=== PATIENT | male | born 1945 ===

== ENCOUNTER → 2020-08-22 10:52 | Outpatient (BNVA) | payer MEDICARE, BC, SELFPAY | PROVIDERS: PCP Internal Medicine; Visit Provider Urology | DX: Z13.89 Encounter for screening for other disorder (principal) | CPT/HCPCS: Q3014 ==

== ENCOUNTER → 2020-11-21 10:23 | Outpatient (BNVA) | payer MEDICARE, BC, SELFPAY | PROVIDERS: PCP Internal Medicine; Visit Provider Urology | DX: R39.12 Poor urinary stream (principal); R97.20 Elevated prostate specific antigen [PSA] | CPT/HCPCS: 51798; 81002; 99212 ==

== ENCOUNTER → 2021-07-25 08:20 | Outpatient (BNVA) | payer MEDICARE, BC, SELFPAY | PROVIDERS: PCP Internal Medicine; Visit Provider Urology | DX: R97.20 Elevated prostate specific antigen [PSA] (principal); N40.0 Benign prostatic hyperplasia without lower urinary tract symptoms | CPT/HCPCS: Q3014 ==

== ENCOUNTER → 2022-02-25 08:26 | Outpatient (BNVA) | payer MEDICARE, BC, SELFPAY | PROVIDERS: PCP Internal Medicine; Visit Provider Urology | DX: R97.20 Elevated prostate specific antigen [PSA] (principal); N40.0 Benign prostatic hyperplasia without lower urinary tract symptoms | CPT/HCPCS: Q3014 ==

== ENCOUNTER → 2022-09-02 09:04 | Outpatient (BNVA) | payer MEDICARE, BC, SELFPAY | PROVIDERS: PCP Internal Medicine; Visit Provider Urology | DX: N40.0 Benign prostatic hyperplasia without lower urinary tract symptoms (principal); R97.20 Elevated prostate specific antigen [PSA] | CPT/HCPCS: Q3014 ==

== ENCOUNTER 2023-03-03 13:30 | Outpatient (AMB) | payer MEDICARE, BC, SELFPAY ==
--- NOTE | 2023-03-03 13:34 | MHC.OFFVIS ---
Intake Intake Visit Reasons: 6M PSA(SET) Intake Note: Patient is present for Follow Up PSA Urology Med: Finasteride Antibiotic Allergy: None Blood Thinner: none [facility]acy: [facility] Allergies No Known Allergies Allergy (Verified 03/03/23 13:36) Medication List - Last Reconciled 03/03/23 by Jesús Galvan MD azelastine intranasal finasteride 5 mg PO DAILY 90 days losartan mg PO metoprolol succinate ER mg PO HPI HPI Comments History of Present Illness Details Xavi is a pleasant male. He is a patient of Dr. Perla. He is seen for the following urologic issue - elevated PSA PSA continued to fall down to 2.6 On finasteride Thursday, Thursday, Thursday Refill provided Six month follow-up Lab work through [facility] Sleep through the imaging Elevated PSA He presents for - further evaluation of elevated PSA Current management is - finasteride - Thursday, Thursday, Thursday Laboratory investigations include - a total PSA evaluation 07/01 7.0 F 15%, 10/31 2.9, 07/02 3.7, 03/03 4.2, 07/03 3.1, 01/02 2.6 Imaging investigations include -none Individualized Prostate Cancer Risk Calculator - 5-10% high risk - Discussed use of 5AR to help differentiate prostate cancer from benign disease. He would like to try this and understands the small risk associated with a delay in diagnosis, A TRUS biopsy - has not been performed Symptoms include - August 2019 had minimal. Sleeps through the night. Good urinary stream Overall symptoms are mild Therapeutic plan will be - 6 months of finasteride with repeat PSA [facility] Medical History Atrial fibrillation Erectile dysfunction HTN (hypertension) Sleep apnea Review of Systems Const Denies chills and Denies fever(s) Card Reports no additional complaints and Denies syncope Resp Denies cough GI Denies abdominal pain and Denies heartburn Reports as per HPI and Denies change in libido Neuro Denies syncope Psych Denies change in libido Endo Denies change in libido Physical Exam Const General: cooperative, healthy appearing, comfortable and no acute distress Orientation/consciousness: patient oriented x3 HEENT Face and sinus: Yes normal facial exam Mouth: moist mucous membranes Neck Neck: Yes normal visual inspection, Yes full ROM and Yes trachea midline Chest Chest palpation & inspection: normal inspection of the chest Resp Effort & Inspection: normal respiratory effort, able to speak in complete sentences and no respiratory distress GI Inspection: Yes normal to inspection Back/Spine/Pelvis Cervical Spine: normal cervical lordosis Thoracic/Lumbar Spine: thoracic and lumbar spine normal to inspection Skin General skin exam: no rashes or lesions noted Neuro General: patient oriented x3, gait normal, tone normal and moves all extremities Extrem General: Yes normal to inspection and Yes capillary refill normal Assessment & Plan Assessment & Plan (1) BPH without obstruction/lower urinary tract symptoms: Code(s): N40.0 - Benign prostatic hyperplasia without lower urinary tract symptoms (2) Elevated PSA: Code(s): R97.20 - Elevated prostate specific antigen [PSA] Plan 6 month follow-up PSA Orders: Orders Prostate Specific Antigen 6 Months R97.20 - Elevated prostate specific antigen [PSA] AMB Urinalysis Automated Today Z13.9 - Encounter for screening, unspecified Patient Instructions: Imaging studies, laboratory and physical exam results were discussed and reviewed in detail. No major barriers to patient understanding were identified. An opportunity to ask questions regarding the treatment plan was provided. All questions were answered. The patient expressed understanding and agreement with the above treatment plan. The patient is aware they should contact our office by phone for worsening of their current condition or the appearance of new urologic symptoms. Compliance is encouraged with any medications and followup testing that is ordered. It is a privilege to participate in the urologic care of your patient. If you have any questions or concerns regarding treatment for the above conditions, or other urologic issues, please do not hesitate to contact me. The office telephone contact is [phone]. This note is constructed using voice recognition software. While every effort has been made to ensure accuracy brake lining finisher asbestos errors may have been included. Yours sincerely, Dr Jesús Galvan MD, JASMIN [facility] - Urology Providers of Expert, Compassionate Care for the Genitourinary System Coding Level of Care Code Est Pt Level 3 (48688) Diagnoses BPH without obstruction/lower urinary tract symptoms N40.0 Elevated PSA R97.20
== END 2023-03-03 14:14 | disposition home or self-care (01) ==
PROVIDERS: PCP Internal Medicine; Visit Provider Urology
DX: N40.0 Benign prostatic hyperplasia without lower urinary tract symptoms (principal); R97.20 Elevated prostate specific antigen [PSA]
CPT/HCPCS: 99213

== ENCOUNTER → 2023-03-03 13:30 | Outpatient (BNVA) | payer MEDICARE, BC, SELFPAY | PROVIDERS: Visit Provider Urology | DX: N40.0 Benign prostatic hyperplasia without lower urinary tract symptoms (principal); R97.20 Elevated prostate specific antigen [PSA] | CPT/HCPCS: 99212 ==

== ENCOUNTER 2023-10-27 14:06 | Outpatient (AMB) | payer MEDICARE, BC, SELFPAY ==
--- NOTE | 2023-10-27 14:08 | A.OFFVIS_ITS ---
Intake Intake Visit Reasons: 6M PSA(set)Confirmed Intake Note: Patient is Present for Follow Up Urology Medication: Finasteride Antibiotic Allergies: None Blood Thinners: None Allergies No Known Allergies Allergy (Verified 10/27/23 14:12) Medication List - Last Reconciled 10/27/23 by Jesús Galvan MD azelastine intranasal finasteride 5 mg PO DAILY 90 days losartan mg PO metoprolol succinate ER mg PO HPI HPI Comments History of Present Illness Details Xavi is a pleasant male. He is a patient of Dr. Perla. He is seen for the following urologic issue - elevated PSA Slight rise in PSA On finasteride Thursday, Thursday, Thursday Refill provided Yearly follow-up Lab work through [facility] through the evening with minimal nocturia Elevated PSA He presents for - further evaluation of elevated PSA Current management is - finasteride - Thursday, Thursday, Thursday Laboratory investigations include - a total PSA evaluation 07/01 7.0 F 15%, 10/31 2.9, 07/02 3.7, 03/03 4.2, 07/03 3.1, 01/02 2.6, 11/03 3.4 Imaging investigations include -none Individualized Prostate Cancer Risk Calculator - 5-10% high risk - Discussed use of 5AR to help differentiate prostate cancer from benign disease. He would like to try this and understands the small risk associated with a delay in diagnosis, A TRUS biopsy - has not been performed Symptoms include - August 2019 had minimal. Sleeps thr ough the night. Good urinary stream Overall symptoms are mild Therapeutic plan will be - 12 month follow-up [facility] Medical History HTN (hypertension) Atrial fibrillation Erectile dysfunction Sleep apnea Review of Systems Const Denies chills and Denies fever(s) Card Reports no additional complaints and Denies syncope Resp Denies cough GI Denies abdominal pain and Denies heartburn Reports as per HPI and Denies change in libido Neuro Denies syncope Psych Denies change in libido Endo Denies change in libido Physical Exam Const General: cooperative, healthy appearing, comfortable and no acute distress Orientation/consciousness: patient oriented x3 HEENT Face and sinus: Yes normal facial exam Mouth: moist mucous membranes Neck Neck: Yes normal visual inspection, Yes full ROM and Yes trachea midline Chest Chest palpation & inspection: normal inspection of the chest Resp Effort & Inspection: normal respiratory effort, able to speak in complete sentences and no respiratory distress GI Inspection: Yes normal to inspection Back/Spine/Pelvis Cervical Spine: normal cervical lordosis Thoracic/Lumbar Spine: thoracic and lumbar spine normal to inspection Skin General skin exam: no rashes or lesions noted Neuro General: patient oriented x3, gait normal, tone normal and moves all extremities Extrem General: Yes normal to inspection and Yes capillary refill normal Assessment & Plan Assessment & Plan (1) BPH without obstruction/lower urinary tract symptoms: Code(s): N40.0 - Benign prostatic hyperplasia without lower urinary tract symptoms (2) Weak urinary stream: Code(s): R39.12 - Poor urinary stream Plan 12 month f/u PSA/PVR Orders: Orders PSA,Total (Free>4and<10) 364 Days R97.20 - Elevated prostate specific antigen [PSA] Patient Instructions: Imaging studies, laboratory and physical exam results were discussed and reviewed in detail. No major barriers to patient understanding were identified. An opportunity to ask questions regarding the treatment plan was provided. All questions were answered. The patient expressed understanding and agreement with the above treatment plan. The patient is aware they should contact our office by phone for worsening of their current condition or the appearance of new urologic symptoms. Compliance is encouraged with any medications and followup testing that is ordered. It is a privilege to participate in the urologic care of your patient. If you have any questions or concerns regarding treatment for the above conditions, or other urologic issues, please do not hesitate to contact me. The office telephone contact is [phone]. This note is constructed using voice recognition software. While every effort has been made to ensure accuracy training facilitator errors may have been included. Yours sincerely, Dr Jesús Galvan MD, JASMIN [facility] - Urology Providers of Expert, Compassionate Care for the Genitourinary System Coding Level of Care Code Est Pt Level 4 (04838) Diagnoses BPH without obstruction/lower urinary tract symptoms N40.0 Weak urinary stream R39.12
== END 2023-10-27 14:49 | disposition home or self-care (01) ==
PROVIDERS: PCP Internal Medicine; Visit Provider Urology
DX: N40.0 Benign prostatic hyperplasia without lower urinary tract symptoms (principal); R39.12 Poor urinary stream
CPT/HCPCS: 99213

== ENCOUNTER → 2023-10-27 14:06 | Outpatient (BNVA) | payer MEDICARE, BC, SELFPAY | PROVIDERS: PCP Internal Medicine; Visit Provider Urology | DX: N40.1 Benign prostatic hyperplasia with lower urinary tract symptoms (principal); R39.12 Poor urinary stream | CPT/HCPCS: 99212 ==

== ENCOUNTER 2024-10-26 14:22 | Outpatient (AMB) | payer MEDICARE, BC, SELFPAY ==
--- NOTE | 2024-10-26 14:26 | MHC.OFFVIS ---
Intake Visit Reasons: 1y/PSA Intake Note: Patient is Present for 1Y Follow Up/PSA Urology Medication: Finasteride Antibiotic Allergies: None Blood Thinners: None Machine Welt Butter Required: No Allergies No Known Allergies Allergy (Verified 10/26/24 14:29) HPI Comments Details: Xavi is a pleasant male. He is a patient of Dr. Perla. He is seen for the following urologic issue - elevated PSA Yearly follow-up PSA 3.8. 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 He would like to try this and understands the small risk associated with a delay in diagnosis, A TRUS biopsy - has not been performed Symptoms include - August 2019 had minimal. Sleeps through the night. Good urinary stream Overall symptoms are mild Therapeutic plan will be - 12 month follow-up [facility] Medical History HTN (hypertension) Atrial fibrillation Erectile dysfunction Sleep apnea Review of Systems Const Denies chills and Denies fever(s) Card Reports no additional complaints and Denies syncope Resp Denies cough GI Denies abdominal pain and Denies heartburn Reports as per HPI and Denies change in libido Neuro Denies syncope Psych Denies change in libido Endo Denies change in libido Physical Exam Const General: cooperative, healthy appearing, comfortable and no acute distress Orientation/consciousness: patient oriented x3 HEENT Face and sinus: Yes normal facial exam Mouth: moist mucous membranes Neck Neck: Yes normal visual inspection, Yes full ROM and Yes trachea midline Chest Chest palpation & inspection: normal inspection of the chest Resp Effort & Inspection: normal respiratory effort, able to speak in complete sentences and no respiratory distress GI Inspection: Yes normal to inspection Back/Spine/Pelvis Cervical Spine: normal cervical lordosis Thoracic/Lumbar Spine: thoracic and lumbar spine normal to inspection Skin General skin exam: no rashes or lesions noted Neuro General: patient oriented x3, gait normal, tone normal and moves all extremities Extrem General: Yes normal to inspection and Yes capillary refill normal Results AMB Urinalysis, Automated UA Leukoctes 0 Eitan/uL Last Edit by LAURA Bro on 10/26/24 15:29 UA Nitrite Negative Last Edit by LAURA Bro on 10/26/24 15: UA Urobilinogen 0.2 mg/dL Last Edit by LAURA Bro on 10/26/24 15: UA Protein 0 mg/dL Last Edit by LAURA Bro on 10/26/24 15:29 UA pH 6.0 Last Edit by Ksenia Baker CCM on 10/26/24 15: UA Blood 0 Surjit/uL Last Edit by Ksenia Baker CCM on 10/26/24 15:29 UA Specific Newborn 1.025 Last Edit by LAURA Bro on 10/26/24 15:29 UA Ketone Negative Last Edit by LAURA Bro on 10/26/24 15:29 UA Bilirubin 0 mg/dL Last Edit by Ksenia Baker CCM on 10/26/24 15:29 UA Glucose 0 mg/dL Last Edit by Ksenia Baker [facility] on 10/26/24 15:29 Results Reviewed Results Reviewed: Laboratory Last Values Urine pH (Auto) 6.0 10/26/24 15: Specific Newborn (Auto) 1.025 10/26/24 15: Urine Protein (Auto) 0 mg/dL 10/26/24: Glucose (UA)(Auto) 0 mg/dL 10/26/24 15:28 Urine Ketones (Auto) Negative 10/26/24 15: Urine Blood (Auto) 0 Surjit/uL 10/26/24 15:28 Urine Nitrite (Auto) Negative 10/26/24 15: Urine Bilirubin (Auto) 0 mg/dL 10/26/24 15:28 Urine Urobilinogen (Auto) 0.2 mg/dL 10/26/24 15:28 Leukocyte Esterase (Auto) 0 Eitan/uL 10/26/24 15:28 Assessment & Plan Assessment & Plan (1) Elevated PSA: Code(s): R97.20 - Elevated prostate specific antigen [PSA] Category: Medical (2) BPH without obstruction/lower urinary tract symptoms: Code(s): N40.0 - Benign prostatic hyperplasia without lower urinary tract symptoms Category: Medical Plan Twelve month follow-up Orders: Orders AMB Urinalysis Automated Today Z13.9 - Encounter for screening, unspecified Prostate Specific Antigen 12 Months N40.0 - Benign prostatic hyperplasia without lower urinary tract symptoms Patient Instructions: This note is constructed using voice recognition software. While every effort has been made to ensure accuracy acquisition professional errors may have been included. Imaging studies, laboratory and physical exam results were discussed and reviewed in detail. No major barriers to patient understanding were identified. An opportunity to ask questions regarding the treatment plan was provided. All questions were answered. The patient expressed understanding and agreement with the above treatment plan. The patient is aware they should contact our office by phone for worsening of their current condition or the appearance of new urologic symptoms. Compliance is encouraged with any medications and followup testing that is ordered. It is a privilege to participate in the urologic care of your patient. If you have any questions or concerns regarding treatment for the above conditions, or other urologic issues, please do not hesitate to contact me. The office telephone contact is [phone]. Sincerely, Dr Jesús Galvan MD, JASMIN [facility] - Urology Compassionate Specialist Care for the Genitourinary System Coding Level of Care Code Est Pt Level 4 (53161) Complex EM visit Add On G2211 Diagnoses Elevated PSA R97.20 BPH without obstruction/lower urinary tract symptoms N40.0
--- OUTSIDE RECORDS SUMMARY | 2024-10-26 17:08 | XMS_ITS | Clinical Summary ---
Author Organization [facility] it Address [address] [place] [address] Care Team Providers Care White Shoe Ragger Name Role Phone Luis Perla MD Primary Care Provider [phone] Surgical History Surgery Date Site/Laterality Comments ABLATION OF DYSRHYTHMIC FOCUS 02/10/2011 PROCEDURE:ABLATION OF DYSRHYTHMIC FOCUS Medical History Medical History Date Comments A-fib (CMS/HCC V24, CMS/HCC V28) DX:A-fib ([facility]) Hypertension DX:Hypertension Social History Tobacco Use Types Packs/Day Years Used Date Smoking Tobacco: Never Smokeless Tobacco: Never Alcohol Use Standard Drinks/Week Comments Never 0 (1 standard drink = 0.6 oz pur e alcohol) Sex and Gender Information Value Date Recorded Sex Assigned at Not on file Legal Sex Male 7:51 PM EST Gender Identity Not on file Sexual Orientation Not on file Obstetrics History Plan of Treatment Health Maintenance Due Date Last Done Comments DTaP,Tdap,and Td Vaccines (1 - Tdap) 1965 Pneumococcal Vaccine: 50+ Ye ars (1 of 1 - PCV) 1996 Zoster Vaccines (1 of 2) 1996 RSV Immunization Adult Patie nts (1 - 1-dose 75+ series) 2021 Cholesterol Screening (Lipid Panel) 08/16/2023 Depression Screening 08/16/2023 Falls Risk Assessment 08/16/2023 Hepatitis C Screening 08/16/2023 Social Influencers of Health Screening 08/16/2023 COVID-19 Vaccine ( - 2023-2 5 season) 2024 Influenza Vaccine (Season Ended) 2025 HIB Vaccines Aged Out No longer eligi ble based on patient's age to complete this topic HPV Vaccines Aged Out No longer eligi ble based on patient's age to complete this topic Hepatitis A Vaccines Aged Out No long er eligible based on patient's age to complete this topic Hepatitis B Vaccines Aged Out No long er eligible based on patient's age to complete this topic IPV Vaccines Aged Out No longer eligi ble based on patient's age to complete this topic MMR Vaccines Aged Out No longer eligi ble based on patient's age to complete this topic Meningococcal ACWY Vaccine Aged Out N o longer eligible based on patient's age to complete this topic Meningococcal B Vaccine Aged Out No l onger eligible based on patient's age to complete this topic RSV Immunization Patients Un lizett 20 months Aged Out No longer eligible b ased on patient's age to complete this topic Varicella Vaccines Aged Out No longer eligible based on patient's age to complete this topic Care Teams White Shoe Ragger Relationship Specialty Start Date End Date Luis Perla MD [address] [place] [address] PCP - General 06/04/23
--- OUTSIDE RECORDS SUMMARY | 2024-10-26 17:09 | XMS_ITS | Encounter Summary ---
Author Organization [facility] Address [address] [place] [address] Care Team Providers Care Rotary Kiln Operator Name Role Phone Luis Mendez MD Primary Care Provider [phone] Encounter Details Date Type Department Care Team (Late st Contact Info) Description 07/29/2023 Scanned Document [facility] [address] [place] [address] Stoney Garcia MD [address] [place] [address] [address] [place] [address] Social History Tobacco Use Types Packs/Day Years Used Date Smoking Tobacco: Never Assessed Sex and Gender Information Value Date Recorded Sex Assigned at Not on file Legal Sex Male 7:54 PM EDT Gender Identity Not on file Sexual Orientation Not on file documented as of this encounter Plan of Treatment Not on file documented as of this encounter Visit Diagnoses Not on filedocumented in this encounter Care Teams Rotary Kiln Operator Relationship Specialty Start Date End Date Luis Mendez MD [address] [place], [place] [id number] PCP - General Internal Medicine 06/16/23 documented as of this encounter
--- OUTSIDE RECORDS SUMMARY | 2024-10-26 17:09 | XMS_ITS | Encounter Summary ---
Author Organization [facility] Address [address] [place] [address] Care Team Providers Care Composition Teacher Name Role Phone Luis Mendez MD Primary Care Provider [phone] Encounter Details Date Type Department Care Team (Late st Contact Info) Description 08/12/2023 Scanned Document [facility] [address] [id number] Social History Tobacco Use Types Packs/Day Years [...] on filedocumented in this encounter Care Teams Composition Teacher Relationship Specialty Start Date End Date Luis Mendez MD [address] [place] [id number] PCP - General Internal Medicine 06/16/23 documented as of this encounter
--- OUTSIDE RECORDS SUMMARY | 2024-10-26 17:09 | XMS_ITS | Encounter Summary ---
Author Organization [facility] Address [address] [place] [address] Care Team Providers Care Snorkelling Instructor Name Role Phone Luis Mendez MD Primary Care Provider [phone] Encounter Details Date Type Department Care Team (Late st Contact Info) Description 07/29/2023 Scanned Document [facility] [address] [place] [phone] Stoney Garcia MD [address] [place] [address] [address] [place] [address] Social History Tobacco Use Types Packs/Day Years [...] on filedocumented in this encounter Care Teams Snorkelling Instructor Relationship Specialty Start Date End Date Luis Mendez MD [address] [place], [place] [id number] PCP - General Internal Medicine 06/16/23 documented as of this encounter
--- OUTSIDE RECORDS SUMMARY | 2024-10-26 17:09 | XMS_ITS | Clinical Summary ---
Author Organization [facility] Address [address] [place] [address] Care Team Providers Care Education Intern Name Role Phone Luis Mendez MD Primary Care Provider Allergies No known active allergies Medications Medication Sig Dispensed Refills Start Date End Date Status Metoprolol Succinate 25 MG CS24 Take 25 mg by mouth daily. 0 Active losartan (COZAAR) tablet 50 mg Take 2 tablets (100 mg total) by mouth daily. 0 Active aspirin EC 81 MG tablet Take 1 tablet (81 mg total) by mouth daily. 0 Active Active Problems No known active problems Social History Tobacco Use Types Packs/Day Years Used Date Smoking Tobacco: Never Smokeless Tobacco: Never Tobacco Cessation:Counseling Given: Not Answered Alcohol Use Standard Drinks/Week Comments Never 0 (1 standard drink = 0.6 oz pur e alcohol) Sex and Gender Information Value Date Recorded Sex Assigned at Male 06/04/2023 9:56 AM EST Gender Identity Not on file Sexual Orientation Not on file Job Start Date Occupation Industry Not on file Not on file Not on file Last Filed Vital Signs Vital Sign Reading Time Taken Comments Blood Pressure 145/81 06/04/2023 12:04 PM EST Pulse 67 06/04/2023 12:04 PM EST Temperature 36.5 ??C (97.7 ??F) 06/04/2023 12:[address] Respiratory Rate 17 06/04/2023 12:04 PM EST Oxygen Saturation 97% 06/04/2023 12:04 PM EST Inhaled Oxygen Concentration - - Weight 95.3 kg (210 lb) 06/04/2023 9:34 AM EST Height 182.9 cm (6') 06/04/2023 9:34 AM EST Body Mass Index 28.48 06/04/2023 9:34 AM EST Plan of Treatment Health Maintenance Due Date Last Done Comments Hepatitis C Screening 1945 Depression Screening 1958 Preventative Health Evaluation 1964 Fall Risk Assessment 01/01/2012 RSV Adult > 60+ Yrs or (1 - 1-dose 75+ series) 2021 COVID-19 Vaccine ( season) 2024 05/12/2022, 12/10/2021, 04/09/2021, Additional history exists Influenza Vaccine (#1) 2024 , 04/23/2021, 03/02/2020, Additional history exists DTap / Tdap / Td (2 - Td or Tdap) 05/07/2026 05/07/2016 Shingrix-Zoster Vaccine Completed 05/10/2018, 02/28 Pneumococcal Vaccine Completed 07/09/2022, 04/30/2015, 04/13/2013, Additional history exists Hepatitis B Vaccines Aged Out No long er eligible based on patient's age to complete this topic RSV Ped < 20 months Aged Out No longe r eligible based on patient's age to complete this topic Care Teams Education Intern Relationship Specialty Start Date End Date Luis Mendez MD [address] [id number] PCP - General Talent Manager 06/04/23
--- OUTSIDE RECORDS SUMMARY | 2024-10-26 17:09 | XMS_ITS | Encounter Summary ---
Author Organization [facility] Address [address] [place] [address] Care Team Providers Care Brick Kiln Burner Name Role Phone Luis Mendez MD Primary Care Provider [phone] Encounter Details Date Type Department Care Team (Late st Contact Info) Description 07/24/2023 Scanned Document [facility] [address] [place] [phone] Stoney Garcia MD [address] [place] [address] [address] [place] [address] Social History Tobacco Use Types Packs/Day Years [...] on filedocumented in this encounter Care Teams Brick Kiln Burner Relationship Specialty Start Date End Date Luis Mendez MD [address] [place] [address] [place], [place] [id number] PCP - General Internal Medicine 06/16/23 documented as of this encounter
--- OUTSIDE RECORDS SUMMARY | 2024-10-26 17:09 | XMS_ITS ---
Author Name [facility] Organization Unknown Results Test Name/Text Value Interpretation Date Range Source Service [facility] XXX-Imp Cepheid GeneXpert (RT-PCR) [facility] Normal [id number] [facility] FLUBV RNA Nph Ql KAMAR+non-probe NEGATIVE Normal [id number] [facility] RSV RNA Nph Ql KAMAR+non-probe NEGATIVE Normal [id number] [facility] FLUAV RNA Nph Ql KAMAR+non-probe NEGATIVE Normal [id number] [facility] SPECIMEN SOURCE XXX NASOPHARYNGEAL Normal [id number] [facility] Troponin I SerPl HS-mCnc 8ng/L Normal [id number] 0 - 20 [facility] CREAT SERPL MCNC 1mg/dL Normal [id number] 0.7 - 1.3 [facility] CALCIUM SERPL MCNC 9.2mg/dL Normal [id number] 8.4 - 10.2 [facility] SODIUM SERPL SCNC 140mmol/L Normal [id number] 135 - 145 [facility] ANION GAP SERPL SCNC 6mmol/L Normal [id number] 5 - 14 [facility] Glomerular filtration rate/1.73 sq M. predicted 78 Normal [id number] 60 - [facility] HCO3 SER SCNC 27mmol/L Normal [id number] 24 - 32 [facility] GLUCOSE SERPL MCNC 110mg/dL Normal [id number] 70 - 199 [facility] BUN SERPL MCNC 22mg/dL Above high normal [id number] 9 - 20 [facility] CHLORIDE SERPL SCNC 107mmol/L Normal [id number] 98 - 107 [facility] POTASSIUM SERPL SCNC 3.9mmol/L Normal [id number] 3.5 - 5.1 [facility] PLATELET NO. BLD AUTO 122K/uL Below low normal [id number] 150 - 450 [facility] RBC NO. BLD AUTO 5.31M/uL Normal [id number] 4.7 - 6 [facility] NUCLEATED RBC 0% Normal [id number] 0 - 1 CTT HS LYMPHOCYTES NO. BLD AUTO 1.4K/uL Normal [id number] 1 - 3.2 [facility] EOSINOPHIL NO. BLD AUTO 0.1K/uL Normal [id number] 0 - 0.5 [facility] MCH RBC QN AUTO 31.8pg Normal [id number] 25 - 33 C [facility] MCHC RBC AUTO MCNC 35.7g/dL Normal [id number] 32 - 36 [facility] MONOCYTES NFR BLD AUTO 8.9% Normal [id number] 2 - 12 [facility] IMMATURE GRANULOCYTE, ABSOLUTE 0.01k/uL Normal [id number] - 0.1 [facility] LYMPHOCYTES NFR BLD AUTO 24.6% Normal 20 - 48 [facility] EOSINOPHIL NFR BLD AUTO 1.1% Normal [id number] 0 - 6 [facility] HGB BLD MCNC 16.9g/dL Normal [id number] 13.5 - 18 [facility] NEUTROPHILS NO. BLD AUTO 3.6K/uL Normal [id number] 1.8 - 7.8 [facility] WBC NO. BLD AUTO 5.5K/uL Normal [id number] 4 - 10.5 [facility] BASOPHILS NFR BLD AUTO 0.4% Normal 0 - 2 [facility] MONOCYTES NO. BLD AUTO 0.5K/uL Normal [id number] 0 - 0.8 [facility] MCV RBC AUTO 89.1fL Normal [id number] 78 - 100 [facility] NEUTROPHILS NFR BLD AUTO 64.8% Normal [id number] 44 - 74 [facility] IMMATURE GRANULOCYTE, PERCENT 0.2% Normal [id number] 0 - 1 [facility] BASOPHILS IN BLOOD BY AUTOMATED COUNT 0K/uL Normal [id number] 0 - 0.2 [facility] PMV BLD AUTO 11.5fL Above high normal [id number] 7.4 - 11.4 [facility] RDW RBC AUTO RTO 12.2% Normal [id number] 12.1 - 17.7 [facility] HCT VFR BLD AUTO 47.3% Normal [id number] 40 - 54 [facility] History of Medication Use Medication Directions Dispensed Refills Start Date End Date Stat us betamethasone acetate-betamethason e sodium phosphate (CELESTONE) injection 9 mg 9 mg, Intra-articular, Once PRN Procedure, Starting on 06/22/23 at 0845, For 1 dose 06/22/2023 06/22/2023 completed Problems Problem Status Onset Date Problem Type Date of Resolution Source Post-traumatic osteoarthritis of left elbow active [facility] Encounters Encounter Type Encounter Reason Primary Diagnosis Location Date Ambulatory Post-traumatic osteoarthritis, left elbow Post-traumatic osteoarthritis, left elbow [facility] 09/01/2023 Ambulatory Post-traumatic osteoarthritis, left elbow Post-traumatic osteoarthritis, left elbow [place] [facility] 08/10/2023 Ambulatory Post-traumatic osteoarthritis, left elbow Post-traumatic osteoarthritis, left elbow [facility] 08/03/2023 Ambulatory MODIFY [facility] [place] 07/29/2023 Ambulatory Loose body in right elbow Loose body in right elbow [facility] 06/22/2023 Ambulatory Post-traumatic osteoarthritis, left elbow Post-traumatic osteoarthritis, left elbow [facility] 06/16/2023 Ambulatory Pain Pain [facility] 06/16/2023 Emergency Chondrocostal junction syndrome (tietze) Chondrocostal junction syndrome (tietze) [facility] 06/04/2023 Care Team Organization Name Specialty Phone Email Start Date End Da te [facility] 08/02/2023 [facility] 08/02/2023 09/28/2024 [facility] [place] 07/22/2023 07/22/2023 [facility] RAY NOXAPATER Primary Care 06/16/2023 06/16/20 [facility] 06/16/2023 06/16/2023 [facility] RAY NEAL Primary Care 06/16/2023 09/29/19 25 [facility] Primary Care 05/1406/04/2023 [facility] 06/04/2023
--- OUTSIDE RECORDS SUMMARY | 2024-10-26 17:09 | XMS_ITS | Encounter Summary ---
Author Organization [facility] Address [address] [place] [address] Care Team Providers Care Job Press Feeder Name Role Phone Luis Mendez MD Primary Care Provider [phone] Encounter Details Date Type Department Care Team (Late st Contact Info) Description 07/29/2023 Scanned Document [facility] [address] [place] [phone] Stoney Garcia MD [address] [place] [address] [address] [place] [address] Social History Tobacco Use Types Packs/Day Years [...] on filedocumented in this encounter Care Teams Job Press Feeder Relationship Specialty Start Date End Date Luis Mendez MD [address] [place], [place] [id number] PCP - General Internal Medicine 06/16/23 documented as of this encounter
--- OUTSIDE RECORDS SUMMARY | 2024-10-26 17:09 | XMS_ITS | Clinical Summary ---
Author Organization [facility] Address [address] [place] [id number] Care Team Providers Care Fine Arts Chair Name Role Phone Luis Mendez MD Primary Care Provider [phone] Allergies No known active allergies Medications oxyCODONE (ROXICODONE) 5 MG immediate release tabletIndication s:Post-op pain Take 1 tablet (5 mg total) by mouth every 4 (four) hours as needed for severe pain. Max Daily Amount: 30 mg 15 tablet 07/27/2023 Active methocarbamol (ROBAXIN) 750 MG tabletIndication s:Post-op pain Take 1 tablet (750 mg total) by mouth 4 (four) times a day. 33 tablet 07/27/2023 Active Social History Tobacco Use Types Packs/Day Years Used Date Smoking Tobacco: Never Assessed Sex and Gender Information Value Date Recorded Sex Assigned at Not on file Legal Sex Male 7:54 PM EDT Gender Identity Not on file Sexual Orientation Not on file Plan of Treatment Health Maintenance Due Date Last Done Comments Hepatitis C Virus Screening 1945 DTaP/Tdap/Td Vaccines (1 - Tdap) 1965 Pneumococcal Vaccines 50+ (1 of 1 - PCV) 1996 Zoster (Shingles) Vaccine (1 of 2) 1996 RSV Vaccine 60 years and older and Patients (1 - 1-dose 75+ series) 2021 Influenza Vaccine 02/11/2024 03/27/2023, , 03/13/2022, Additional history exists COVID-19 Vaccine ( season) 2024 09/01/2023, 05/12/2022, 12/10/2021, Additional history exists Hepatitis B Vaccines Aged Out No long er eligible based on patient's age to complete this topic Insurance MEDICARE PART A & B [place] [id number] Care Teams Fine Arts Chair Relationship Specialty Start Date End Date Luis Mendez MD [address] [place] [address] [address] [place] [address] PCP - General Internal Medicine 06/16/23
--- OUTSIDE RECORDS SUMMARY | 2024-10-26 17:09 | XMS_ITS | Encounter Summary ---
Author Organization [facility] Address [address] [place] [id number] Care Team Providers Care Animal Shelter Clerk Name Role Phone Luis Mendez MD Primary Care Provider [phone] Encounter Details Date Type Department Care Team (Late st Contact Info) Description 07/29/2023 [facility] [address] [phone] Stoney Garcia MD [address] [place] [address] [address] [place] [address] Social History Tobacco Use Types Packs/Day Years Used Date Smoking Tobacco: Never Assessed Sex and Gender Information Value Date Recorded Sex Assigned at Not on file Legal Sex Male 7:54 PM EDT Gender Identity Not on file Sexual Orientation Not on file documented as of this encounter Progress Notes * Stoney Garcia MD - 07/29/2023 9:30 AM EST Images from the original note were not included. [facility] [address] [facility] [address] [facility] [phone] Encounter Date: 07/29/2023 Daletaylor Larios presents today for post operative followup Subjective, Objective, Assessment and Plan Patient was taken the [facility] today for right elbow radical extensive arthroscopic debridement anteriorly and extensive synovectomy with massive This along with ulnar nerve neurolysis in situ. Patient tolerated procedure well and was discharged home. They have instructions to follow up in the office or therapy for dressing change and full mobilization. Procedures The patient was informed of their diagnosis and treatment options. Medical decision-making involvedassessing all known acute and chronic conditions, the relationship of diagnoses, systemic effects, and acute exacerbations. External medical notes and results from diagnostic tests were reviewed whenapplicable. The risks and benefits of operative and non-operative treatment, including side effectsor complications of of interventions (including medication and therapy) possible complications withand without treatment and when to proceed with options for surgery were reviewed. An independent historian was utilized if present, and communications were sent to listed providers. Any social or phys ica determent of health, when relevant and recognized, was addressed. All necessary electronic precharting, postcharting and dictation was factored into clinical time documentation. Please excuse any errors from dictation to copy camera operator. Stoney Garcia MD documented in this encounter Plan of Treatment Not on file documented as of this encounter Visit Diagnoses Not on filedocumented in this encounter Care Teams Animal Shelter Clerk Relationship Specialty Start Date End Date Luis Mendez MD [address] [place] [id number] PCP - General Internal Medicine 06/16/23 documented as of this encounter
--- OUTSIDE RECORDS SUMMARY | 2024-10-26 17:09 | XMS_ITS | Encounter Summary ---
Author Organization [facility] Address [address] [place] [address] Care Team Providers Care Wedding Planner Name Role Phone Luis Mendez MD Primary Care Provider [phone] Encounter Details Date Type Department Care Team (Late st Contact Info) Description 08/11/2023 Scanned Document [facility] [address] [place] [phone] Stoney Garcia MD [address] [place] [address] [address] [place] [address] Social History Tobacco Use Types Packs/Day Years [...] on filedocumented in this encounter Care Teams Wedding Planner Relationship Specialty Start Date End Date Luis Mendez MD [address] [place], [place] [id number] PCP - General Internal Medicine 06/16/23 documented as of this encounter
== END 2024-10-26 15:33 | disposition home or self-care (01) ==
LOC: HO.HUSH 14:22
PROVIDERS: PCP Internal Medicine; Visit Provider Urology
DX: R97.20 Elevated prostate specific antigen [PSA] (principal); N40.0 Benign prostatic hyperplasia without lower urinary tract symptoms; Z13.9 Encounter for screening, unspecified
CPT/HCPCS: 99214; G2211

== ENCOUNTER → 2024-10-26 14:22 | Outpatient (BNVA) | payer MEDICARE, BC, SELFPAY | PROVIDERS: PCP Internal Medicine; Visit Provider Urology | DX: N40.0 Benign prostatic hyperplasia without lower urinary tract symptoms (principal); R97.20 Elevated prostate specific antigen [PSA] | CPT/HCPCS: 81003; 99212 ==